=== PATIENT | female | born 1955 | race Caucasian/White ===

== ENCOUNTER → 2021-06-05 | Outpatient (CLI) | payer BC, MEDICARE ==
--- NOTE | 2021-06-05 16:42 | Diagnostic Imaging Report ---
EXAM: Cervical spine radiograph EXAM DATE: 05/06/2021 COMPARISON: None HISTORY: Chronic neck pain. TECHNIQUE: 4 views of the cervical spine with extension and flexion views. FINDINGS: There are multilevel degenerative changes of the cervical spine. Vertebral body heights are maintained. There is grade 1 retrolisthesis of C4 on C5 which is increased with extension and decreased with flexion views. There are surgical changes from fusion of C5-C7. There is disc height loss from C4 through C7. There is multilevel facet hypertrophy without perched facets. No acute fracture is seen. The prevertebral soft tissues are normal. IMPRESSION: 1. Multilevel surgical and degenerative changes of the cervical spine without acute osseous abnormality. 2. Grade 1 retrolisthesis of C4 on C5 which is worsened with extension and improved with flexion. Dictated by: Dictated on workstation # [id number]
--- NOTE | 2021-06-05 16:47 | Diagnostic Imaging Report ---
INDICATION: Chronic back pain. Exam is interpreted in correlation with a CT lumbar performed 05/31/2017. FINDINGS: Wedge deformity at T11 is a chronic finding, but there is progressive stature loss at its anterior one third with compared to the prior MR. Middle 3rd superior endplate can cavity at L4 is a new finding, at its middle 3rd it drops about 15% height, the anterior and posterior cortical heights are maintained. There is degenerative disc space narrowing, endplate sclerosis and osteophytes throughout the lumbar spine with degenerative disease showing mild generalized progression from prior. There is also a new grade 1 anterolisthesis of L4 on L5 without visualized spondylolysis defect. There is mild grade 1 retrolisthesis L2 on L3. These levels of malalignment showed no change when correlating neutral, flexion and extension views. There is a hypertrophic lower lumbar facet arthrosis chronic but increased as well. IMPRESSION: 1. Progressive degenerative changes, development of multilevel stable grade 1 listhesis, new supine middle 3rd superior endplate compression at L4 appear sclerotically marginated and new from 2017 may be chronic progressive lower thoracic wedge deformity without acute appearing features. 2. No pathological motion at flexion or extension. Dictated by: Dictated on workstation # [id number]
--- NOTE | 2021-06-05 16:57 | Diagnostic Imaging Report ---
INDICATION: Chronic back pain. COMPARISON: While I have no previous for direct comparison, the study is interpreted in correlation with two-view chest x-ray taken 06/04/2017. FINDINGS: Wedge deformity and stature loss of the superior endplate of T11 showed no appreciable progression from comparison chest x-ray. There is lower cervical spondylosis with multilevel ACDF of C5, C6, and C7. The alignment across above and below the fusion appeared anatomic. There is some wedging and stature loss at what is believed to be the T2 vertebral body segment. This is obscured by the shoulders on the comparison chest x-ray, and this is of uncertain acuity. Some old appearing endplate Schmorl's node deformities in the lumbar spine. IMPRESSION: 1. Chronic T11 wedge compression. Acuity-indeterminate upper thoracic likely T2 fracture noted. If there is upper thoracic pain as a new finding, consider follow-up with MRI. 2. Degenerative changes. Normal alignment. No convincing acute abnormality. 3. No complicating feature associated with lower cervical multilevel ACDF. Dictated by: Dictated on workstation # [id number]
== END ==
LOC: RAD 14:17
PROVIDERS: ATTEND Physician Assistant
DX: M47.815 Spondylosis without myelopathy or radiculopathy, thoracolumbar region (principal); M48.55XA Collapsed vertebra, not elsewhere classified, thoracolumbar region, initial encounter for fracture; M43.16 Spondylolisthesis, lumbar region; M43.12 Spondylolisthesis, cervical region; M47.812 Spondylosis without myelopathy or radiculopathy, cervical region; M46.1 Sacroiliitis, not elsewhere classified
CPT/HCPCS: 72050; 72072; 72110